=== PATIENT | female | born 1985 | race Caucasian/White ===

== ENCOUNTER → 2020-06-05 | Outpatient (CLI) | payer OTHER ==
[~2020-06-05] MED LIST: ADVAIR 250-501 EACH INH; ALLEGRA180 MG PO; AMOXICILLIN 50500 M1 PO; CENTRUM TABLET1 EACH PO; DEPO-PROVERA; KEPPRA250 MG PO; LAMICTAL; LEVOTHYROXIN0.025 MG PO; LEXAPRO20 MG PO; PREVACID 30MG C30 M1 PO; TESSALON200 MG PO; VENTOLIN17 GM
== END ==
LOC: SJCVCIMAG 08:11
PROVIDERS: ATTEND Internal Medicine Cardiovascular Disease
DX: R07.9 Chest pain, unspecified (principal); J45.909 Unspecified asthma, uncomplicated